=== PATIENT | male | born 1975 | race Caucasian/White ===

== ENCOUNTER 2024-09-10 18:29 | Emergency (ER) | payer MEDICAID ==
[~2024-09-10] VITALS: Ht 188 cm; Wt 81.0 kg
[2024-09-10 18:52] VITALS: BP 133/86; PULSE 91; O2SAT 97
[2024-09-10 20:01] VITALS: RESP 16
[2024-09-10] MEDS: ketorolac trometh 30MG/ML vial 30 MG/ML VIAL IM ONE (20:01)
[2024-09-10] MEDS ORDERED: AMOX-580 PO (20:06)
[2024-09-10 20:14] VITALS: TEMP 98.8
== END 2024-09-10 20:20 | disposition home or self-care (01) ==
LOC: ER 18:30
DX: K04.7 Periapical abscess without sinus (principal); K02.9 Dental caries, unspecified
CPT/HCPCS: 96372; 99283; J1885

== ENCOUNTER 2025-01-11 10:50 | Emergency (ER) | payer MEDICAID ==
[~2025-01-11] VITALS: Ht 188 cm; Wt 79.3 kg
[2025-01-11 11:49] LABS: ALANINE AMINOTRANSFERASE 32 U/L (12-78); ALBUMIN 3.3 G/DL (3.4-5.0); ALBUMIN/GLOBULIN RATIO 0.8 (1.1-1.5); ALKALINE PHOSPHATASE 124 IU/L (46-116); ANION GAP 5 (8-16); ASPARTATE AMINO TRANSFERASE 59 U/L (10-37); BILIRUBIN,TOTAL 0.6 MG/DL (0.1-1.0); BLOOD UREA NITROGEN 17 MG/DL (7-18); BUN/CREATININE RATIO 16.5 (10.0-20.0); CALCIUM 8.8 MG/DL (8.5-10.1); CHLORIDE 97 MMOL/L (99-107); CREATININE 1.03 MG/DL (0.60-1.10); GLUCOSE 107 MG/DL (70-104); POTASSIUM 5.2 MMOL/L (3.5-5.1); PRO BRAIN NATRIURETIC PEPTIDE < 30 PG/ML (0-125); SODIUM 131 MMOL/L (135-145); TOTAL CARBON DIOXIDE 28.6 MMOL/L (24-32); TOTAL PROTEIN 7.4 G/DL (6.4-8.2); eCRCL 97 ML/MIN; eGFR 77 ML/MIN
[2025-01-11 12:09] LABS: BASOPHILS % (AUTO) 0.4 % (0-1); EOSINOPHILS % (AUTO) 0 % (0-6); HEMATOCRIT 47.2 % (42.0-52.0); LYMPHOCYTES # (AUTO) 0.9 X10'3 (1.1-4.8); LYMPHOCYTES % (AUTO) 10.4 % (21-51); MEAN CORPUSCULAR VOLUME 91.3 FL (78-98); MONOCYTES # (AUTO) 1.2 X10'3 (0-0.9); MONOCYTES % (AUTO) 13.9 % (2-12); NEUTROPHILS # (AUTO) 6.4 X10'3 (1.8-7.7); NEUTROPHILS % (AUTO) 75.3 % (42-75); PLATELET COUNT 163 X10'3 (140-440); RED BLOOD COUNT 5.17 X10'6 (4.70-6.10); RED CELL DISTRIBUTION WIDTH 13.8 % (11.5-14.5); WHITE BLOOD COUNT 8.5 X10'3 (4.5-11.0)
[2025-01-11] MEDS ORDERED: AZIT-164 PO (14:26)
[2025-01-11 14:59] VITALS: TEMP 98.9
[2025-01-11] MEDS ORDERED: NO HOME MEDS (15:02)
[2025-01-11 16:04] VITALS: BP 103/69; PULSE 94; RESP 20; O2SAT 94
== END 2025-01-11 16:08 | disposition home or self-care (01) ==
LOC: ER 10:51
DX: J18.9 Pneumonia, unspecified organism (principal)
CPT/HCPCS: 36415; 71045; 80053; 83880; 84484; 85025; 87502; 87503; 93005; 99285; A4615